=== PATIENT | female | born 1985 | race Caucasian/White ===

== ENCOUNTER → 2021-05-21 | Outpatient (CLI) | payer OTHER ==
--- NOTE | 2021-05-21 13:33 | RAD ---
EXAM: Pelvic sonogram. HISTORY: IUD placement. TECHNIQUE: Sonographic imaging of the pelvis performed. COMPARISON: None. FINDINGS: The uterus measures 8.9 x 5.6 x 3.4 cm. There is an intrauterine contrast device within the endometrial cavity. There is linear echogenicity within the lower uterine segment likely due to the IUD strings. The ovaries are normal in size and demonstrate normal blood flow. There is a 1.4 cm marcellus nant right ovarian follicle. There are multiple additional smaller bilateral ovarian follicles. There is no pelvic free fluid. IMPRESSION: 1. IUD in expected position. 2. 4 cm physiologic dominant right ovarian follicle. Electronically signed by: Ivone Ashby MD (05/21/2021 1:30 PM) [id number]
== END ==
LOC: US 12:48
PROVIDERS: ATTEND Nurse Practitioner Women's Health
DX: T83.32XA Displacement of intrauterine contraceptive device, initial encounter (principal); X58.XXXA Exposure to other specified factors, initial encounter
CPT/HCPCS: 76830

== ENCOUNTER 2021-08-10 13:58 | Emergency (ER) | payer OTHER ==
[~2021-08-10] VITALS: Ht 162.6 cm; Wt 63.0 kg
[2021-08-10 14:36] VITALS: BP 117/74
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
--- NOTE | 2021-08-10 15:27 | RAD ---
XR FINGER(S)_RIGHT 2+VIEWS History: Right third finger pain/swelling. Comparison: None. Technique: AP view right hand. 2 coned-down views of the middle finger. Findings: Osseous mineralization is normal. No fracture or dislocaton. No significant degenerative changes. Sof t tissues are unremarkable. Impression: 1. No acute osseous abnormality of the right middle finger. Electronically signed by: Sherman Ortega MD (08/10/2021 3:25 PM) [id number]
[2021-08-10] MEDS ORDERED: HYDR-2155 PO (15:45)
[2021-08-10 16:20] LABS: BACTERIA,URINE 0 /HPF (0-FEW); BILIRUBIN,URINE NEG (NEG); CLARITY,URINE CLEAR; COLOR,URINE YELLOW; GLUCOSE,URINE NEG (NEG); NITRITE,URINE NEG (NEG); RBC,URINE 0 /HPF (0-2); SQUAMOUS EPITHELIAL CELL,UR OCC /LPF; UROBILINOGEN,URINE 0.2 mg/dL (0.2 mg/dL); WBC,URINE 0 /HPF (0-4)
== END 2021-08-10 16:21 | disposition home or self-care (01) ==
LOC: ER 13:58
DX: M54.5 Low back pain (principal); M54.2 Cervicalgia; M79.644 Pain in right finger(s); R22.31 Localized swelling, mass and lump, right upper limb; V49.49XA Driver injured in collision with other motor vehicles in traffic accident, initial encounter; Y93.I9 Activity, other involving external motion; Y92.89 Other specified places as the place of occurrence of the external cause; Y99.8 Other external cause status
CPT/HCPCS: 70450; 72125; 72131; 73140; 81001; 99285-25